=== PATIENT | male | born 1950 | race Caucasian/White ===

== ENCOUNTER 2020-09-05 15:20 | Emergency (ER) | payer BC ==
[~2020-09-05] VITALS: Ht 177.8 cm; Wt 80.0 kg
--- NOTE | 2020-09-05 16:48 | PHYS DOC ---
Past Medical History Past Medical History: Cancer, Other Additional Past Medical Histor: Prostate CA Past Surgical History: No Surgical History Smoking Status: Never Smoker Alcohol Use: None General Adult EDM: Chief Complaint: TOE PROBLEM HPI: HPI: Patient is a 70 year old male who presents to the ED today complaining of discoloration of the left great toe. Patient states he sat on his left foot 3 weeks ago and noticed some discoloration on the great toe. Patient states he is concerned this is a blood clot that could be dangerous. Review of Systems: Review of Systems: Constitutional: Denies fever or chills. [] Musculoskeletal: Denies back pain or joint pain. [] Integument: Left great toe medial aspect with a small subungual hematoma roughly 10%. Full range of motion to the left great toe. +2 left pedal pulse. Cap refill less than 2 seconds to left toes Neurologic: Denies headache, focal weakness or sensory changes. [] Psychiatric: Denies depression or anxiety. [] Heart Score: C/O Chest Pain: N/A Risk Factors: Risk Factors: DM, Current or recent (<one month) smoker, HTN, HLP, family history of CAD, obesity. Risk Scores: Score 0 - 3: 2.5% MACE over next 6 weeks - Discharge Home Score 4 - 6: 20.3% MACE over next 6 weeks - Admit for Clinical Observation Score 7 - 10: 72.7% MACE over next 6 weeks - Early Invasive Strategies Allergies: Allergies: Allergies Coded Allergies Type Severity Reaction Last Updated Verified No Known Drug Allergies 09/05/20 No Physical Exam: PE: Constitutional: Well developed, well nourished, no acute distress, non-toxic appearance. [] HENT: Normocephalic, atraumatic, bilateral external ears normal, oropharynx moist, no oral exudates, nose normal. [] Eyes: PERRLA, EOMI, conjunctiva normal, no discharge. [] Neck: Normal range of motion, no tenderness, supple, no stridor. [] Cardiovascular:Heart rate regular rhythm, no murmur [] Lungs & Thorax: Bilateral breath sounds clear to auscultation [] Abdomen: Bowel sounds normal, soft, no tenderness, no masses, no pulsatile masses. [] Skin: Warm, dry, no erythema, no rash. [] Back: No tenderness, no CVA tenderness. [] Extremities: No tenderness, no cyanosis, no clubbing, ROM intact, no edema. [] Neurologic: Alert and oriented X 3, normal motor function, normal sensory function, no focal deficits noted. [] Psychologic: Affect normal, judgement normal, mood normal. [] Current Patient Data: Vital Signs: Vital Signs Date Time Temp Pulse Resp B/P (MAP) Pulse Ox O2 Delivery O2 Flow Rate FiO2 09/05/20 16:10 98.7 71 16 175/83 (113) 98 Room Air 98.7 EKG: EKG: [] Radiology/Procedures: Radiology/Procedures: [] Course & Med Decision Making: Course & Med Decision Making Pertinent Labs and Imaging studies reviewed. (See chart for details) This is a 70-year-old male patient presenting to the ED today with umbilical hematoma that occurred 3 weeks ago. Patient is concerned this is a dangerous blood clot. Reassured patient. Discharged home Dragon Disclaimer: Dragon Disclaimer: This electronic medical record was generated, in whole or in part, using a voice recognition dictation system. Departure Departure Impression: Primary Impression: Subungual hematoma Disposition: 01 HOME / SELF CARE / HOMELESS Condition: STABLE Referrals: NO PCP (PCP) follow up in one week Patient Instructions: Subungual Hematoma, [id number] Additional Instructions: You have subungual hematoma to the left great toe, this is not infectious or dangerous. Follow-up with your primary care doctor as needed. AGUSTINA EDWARDS APRN Sep 05, 2020 16:48
[2020-09-05 17:02] VITALS: BP 159/78
== END 2020-09-05 17:04 | disposition home or self-care (01) ==
LOC: ER 15:20
DX: S90.212A Contusion of left great toe with damage to nail, initial encounter (principal); X58.XXXA Exposure to other specified factors, initial encounter; Y93.89 Activity, other specified; Y92.89 Other specified places as the place of occurrence of the external cause; Y99.8 Other external cause status
CPT/HCPCS: 99281